=== PATIENT | male | born 1975 ===

== ENCOUNTER 2024-01-16 17:57 | Emergency (ER) | payer BC, SELFPAY ==
--- NOTE | 2024-01-16 17:45 | RT.EKG_ITS ---
APPROVED REPORT Exam: Resting ECG Reason for Exam: Syncope Patient Location: E HR:93 bpm ECG Measurements Heart Rate 93 AXIS [place] 168 P 56 QRSd 79 QRS 6 QT 345 T 21 QTc 429 Conclusion Sinus rhythm...normal P axis, V-rate 60- 99 Inferior infarct, old...Q >35mS, II III aVF
[2024-01-16 18:04] VITALS: PULSE 87; RESP 20; TEMP 36.3; O2SAT 97
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
[2024-01-16] MEDS: Normal Saline 1,000 ML 1000 ML IV (18:12)
[2024-01-16 18:19] LABS: Abs Immature Grans 0.04 10^3/uL (0.0-0.06); Absolute Basophil Count 0.05 10^3/uL (0.0-0.2); Absolute Eosinophil Count 0.03 10^3/uL (0.0-0.7); Absolute Lymphocyte Count 1.85 10^3/uL (1.2-3.4); Absolute Monocyte Count 0.67 10^3/uL (0.1-0.8); Absolute Neutrophil Count 7.92 10^3/uL (1.2-6.7); Basophils % 0.5 %; Eosinophils % 0.3 %; HCT 48.2 % (40.0-50.0); HGB 15.6 g/dL (13.5-17.5); Immature Grans % 0.4 %; Lymphocytes % 17.5 %; MCH 27.1 pg (27.0-33.0); MCHC 32.4 % (32.0-36.0); MCV 84 fL (80-95); Monocytes % 6.3 %; Platelet Count 409 10^3/uL (130-400); RBC 5.75 10^6/uL (4.36-5.78); RDW 12.8 % (11.8-14.1); RDW-SD 39.1 fL; WBC 10.56 10^3/uL (4.4-10.8)
[2024-01-16 18:28] LABS: PTT Activated 24.7 sec (23.6-32.8)
[2024-01-16 18:41] LABS: ALT 58 U/L (16-63); AST 30 U/L (15-37); Albumin 4.5 g/dL (3.4-5.0); Alkaline Phosphatase 109 U/L (46-116); Anion Gap 12.3 mmol/L (3-11); BUN 19 mg/dL (7-18); CO2 26.7 mmol/L (21.0-32.0); CREATININE 2.4 mg/dL (0.70-1.30); Chloride 101 mmol/L (98-107); Estimated GFR 32.88 (mL/min/1.73m2); Glucose 130 mg/dL (74-106); Magnesium 2.1 mg/dL (1.8-2.4); Potassium 4.2 mmol/L (3.5-5.1); Sodium 140 mmol/L (136-145); Total Protein 8.9 g/dL (6.4-8.2); Troponin I 7 ng/L (<or=76)
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
--- NOTE | 2024-01-16 18:48 | DI.CT_ITS ---
Exam(s) CT CHEST PE CTA EXAM: CT CHEST PE CTA CLINICAL HISTORY: syncope, ?PE. TECHNIQUE: Imaging Protocol: CT angiography of the chest was performed using pulmonary embolus diego col. Multi planar reconstructions were performed. CONTRAST MATERIAL: Intravenous: Omnipaque 350 Contrast volume: 100 cc COMPARISON: No exams were available for comparison FINDINGS: CHEST: PULMONARY ARTERIES: There are no intraluminal filling defects to suggest acute pulmonary emboli. LUNGS: There are no infiltrates nor evidence of pulmonary infarction.. No lung contusion. No pneumot horax. No pleural effusion. No significant focal findings in the trachea and mainstem bronchi. MEDIASTINUM: No sternal fracture or mediastinal hematoma. There is no hilar nor mediastinal adenopat hy. Visualized thyroid unremarkable. CARDIAC: Heart size is upper normal. There is no pericardial effusion.Caliber of the thoracic aorta is within normal limits. No evidence of dissection. There is no significant shift of the interventri cular septum. PARTIALLY VISUALIZED UPPERMOST ABDOMEN: No obvious findings OSSEOUS: No fractures. No significant incidental osseous lesions.. IMPRESSION: 1. No evidence of acute pulmonary emboli. No evidence of pulmonary infarction.No pleural effusions. 2. No lung contusion or pneumothorax. 3. No evidence of aortic dissection nor pericardial effusion. Report called by myself to ER 01/16/2024 7:08 p.m. RADIATION DOSE DELIVERED: 136.44mGy.cm Total DLP DATA REPOSITORY: All CT scans at this facility are submitted to the National Radiology Data Registry (NRDR) Dose Index Registry (DIR) with the [employer] ([employer]). RADIATION OPTIMIZATION: All CT scans at this facility use at least one of these dose optimization te chniques: automated exposure control; mA and/or kV adjustment per patient size (includes targeted exa ms where dose is matched to clinical indication); or iterative reconstruction.
[2024-01-16 18:51] LABS: ETHANOL BLOOD < 3.0 mg/dL (<10)
[2024-01-16] MEDS: Omnipaque 350 MG/ML 100 ML BTL IJ (18:53)
[2024-01-16] MEDS: Normal Saline - Diluent 50 ML VIAL IJ (18:54)
[2024-01-16 19:09] VITALS: RESP 18
[2024-01-16 19:40] LABS: Troponin I 8 ng/L (<or=76)
[2024-01-16 19:56] VITALS: BP 143/90; PULSE 87; RESP 16; TEMP 36.8; O2SAT 98
[2024-01-16 19:58] LABS: Bilirubin Negative (Negative); Blood Negative (Negative); Clarity Clear (Clear); Glucose Negative (Negative); Ketones Negative (Negative); Leukocyte Esterase Negative (Negative); Nitrite Negative (Negative); Urobilinogen 0.2 mg/dL (Up to 0.2)
== END 2024-01-16 20:02 | disposition home or self-care (01) ==
LOC: ER 20:22
PROVIDERS: Emergency Provider Emergency Medicine
DX: R55 Syncope and collapse (principal); E86.0 Dehydration
CPT/HCPCS: 71275; 80053; 93005; 96360; 99285; 70450; 72125; 80320; 81003; 83735; 84443; 84484; 85025; 85610; 85730; 93010; 99284; J3490